=== PATIENT | male | born 2000 | race Caucasian/White ===

== ENCOUNTER 2021-01-08 12:10 | Emergency (ER) | payer SELFPAY ==
[~2021-01-08] VITALS: Ht 167.6 cm; Wt 79.0 kg
[2021-01-08 12:13] VITALS: BP 140/104
[2021-01-08] MEDS ORDERED: MUPI1OIN4 TP (12:53)
== END 2021-01-08 13:11 | disposition home or self-care (01) ==
LOC: ER 12:10
DX: L40.9 Psoriasis, unspecified (principal); Z90.49 Acquired absence of other specified parts of digestive tract
CPT/HCPCS: 99281